=== PATIENT | female | born 1990 | race Caucasian/White ===

== ENCOUNTER 2024-02-08 19:12 | Emergency (ER) | payer OTHER ==
[~2024-02-08] VITALS: Ht 160 cm; Wt 61.4 kg
[2024-02-08 19:17] VITALS: TEMP 98.1
[2024-02-08] MEDS ORDERED: Ketorolac 15 MG/ML VIAL IV ONE (19:45)
[2024-02-08 21:06] VITALS: BP 95/73; PULSE 70
== END 2024-02-08 21:06 | disposition home or self-care (01) ==
LOC: COL.ER 19:12
DX: S03.00XA Dislocation of jaw, unspecified side, initial encounter (principal); X58.XXXA Exposure to other specified factors, initial encounter
CPT/HCPCS: J1885; J2704